=== PATIENT | female | born 1965 | race American Indian/Alaskan Native ===

== ENCOUNTER 2018-06-22 21:43 | Emergency (ER) | payer MEDICAID ==
[2018-06-22] MEDS ORDERED: DECADRON IM ONE (22:05)
[2018-06-22] MEDS ORDERED: DECADRON ONE (22:09)
--- NOTE | 2018-06-22 23:46 | Emergency Department Report ---
ED Rash HPI - HPI Chief Complaint: Skin Rash Stated Complaint: ALLERGIC REACTION/ ITCHING Time Seen by Provider: 06/22/18 22:00 Duration: 2 months Location: Head, Neck, Chest Suspected Cause: Unknown Rash Symptoms: Yes Itching, No Facial Swelling, No Tongue/Oral Swelling, No Breathing Difficulties, No Choking Sensation, No Wheezing/Dyspnea, No Peeling, No Blistering, No Fever, No Lightheaded, No Malaise, No Myalgias Severity: moderate Other History: Pt is a 52 yo female who presents to the ED with c/o a rash to the face, neck, chest, and upper back that began 2 months ago. She states she has intermittent episodes where it resolves and then returns. The patient states she has seasonal allergies and allergies to pollen. She states she has been taking claritin, hydrocortisone cream, and benadryl. The patient states it will go away for a few days and then return again. She states that she stopped taking her lipitor, omeprazole, and ranitidine on her doctors orders but continued to have flare ups of her rash. She has not seen an time study technologist or job putter up and ticket preparer. She denies any new foods, soaps, detergents, or lotions. The patient denies any difficulty breathing, wheezing, or tongue edema/angioedema. ED Review of Systems ROS: Stated complaint: ALLERGIC REACTION/ ITCHING Other details as noted in HPI Comment: All other systems reviewed and negative ED Past Medical Hx - Past Medical History Previous Medical History?: Yes Hx GERD: Yes Hx Asthma: Yes - Surgical History Past Surgical History?: No - Social History Smoking Status: Never Smoker Substance Use Type: Alcohol - Medications Home Medications: Home Medications Medication Instructions Recorded Confirmed Last Taken Type Flonase 2 puff INHALATION DAILY 03/10/18 03/10/18 03/09/18 History Gabapentin 600 mg PO HS 03/10/18 03/10/18 03/08/18 History Omeprazole/Sodium Bicarbonate 1 each PO DAILY 30 Days #30 capsule 03/10/18 Unknown Rx [Omeprazole-Bicarb 20-1,100 Cap] Symbicort 160-4.5 Mcg Inhaler 2 puff INHALATION DAILY 03/10/18 03/10/18 03/09/18 History VENTOLIN Inhaler(NF) 2 puff INHALATION QID 03/10/18 03/10/18 03/09/18 History tiZANidine 4 mg PO Q3H 03/10/18 03/10/18 03/08/18 History traMADol 1 tab PO BID 03/10/18 03/10/18 03/08/18 History Cetirizine HCl [ZyrTEC] 10 mg PO DAILY #30 capsule 06/22/18 Unknown Rx Hydroxyzine HCl [hydrOXYzine] 50 mg PO DAILY PRN #20 tablet 06/22/18 Unknown Rx Prednisone [predniSONE 10 mg 10 mg PO .TAPER #1 tab.ds.pk 06/22/18 Unknown Rx (6-Day Pack, 21 Tabs)] Rash Exam - Exam General: Vital signs noted. No distress. Alert and acting appropriately. HEENT: Yes Periorbital Edema (very mild amount of swelling around the eyes ), No Conjuctival Injection, No Chemosis, No Perioral Edema, No Tongue Edema, No Uvular Edema, No Compromised Airway, No Drooling Lungs: Yes Good Air Exchange, No Wheezes, No Ronchi, No Stridor, No Cough, No Labored Respirations, No Retractions, No Use of Accessory Muscles, No Other Abnormal Lung Sounds Heart: Yes Regular, No Murmur Skin: Yes Urticarial Rash (rash present to the face, neck, chest, and upper back), Yes Erythema, No Weeping, No Tenderness, No Edema, No Encrustations ED Course Vital Signs 06/22/18 21:48 Temperature 98.3 F Pulse Rate 89 Respiratory 18 Rate Blood Pressure 158/84 [Right] O2 Sat by Pulse 98 Oximetry ED Medical Decision Making - Medical Decision Making Pt is a 52 yo female who presents to the ED with c/o urticaria that began 2 months ago. She has been having intermittent episodes. Pt has a hx of seasonal allergies. Has been taking claritin, benadryl, and using hydrocortisone cream. No respiratory involvement. VSS. Will give pt hydroxyzine, medrol dose pack, and zrytec. Advised pt to follow up with her PCP in the next 2 days. Referred pt to dermatology due to frequent rashes. return to the ED for any new or worsening symptoms. - Differential Diagnosis Allergic reaction, contact dermatitis, urticaria, irritant dermatitis Critical care attestation.: If time is entered above; I have spent that time in minutes in the direct care o f this critically ill patient, excluding procedure time. ED Disposition Clinical Impression: Urticaria Allergic reaction Qualifiers: Encounter type: initial encounter Qualified Code(s): T78.40XA - Allergy, unspecified, initial encounter Disposition: TO HOME OR SELFCARE Is pt being admited?: No Does the pt Need Aspirin: No Condition: Stable Instructions: Allergies (ED) Additional Instructions: Follow up with your primary care doctor in the next 2-3 days. Follow up with dermatology in the next 2-3 days. Return to the emergency room for any new or worsening symptoms. Take medications as prescribed. Prescriptions: Hydroxyzine HCl [hydrOXYzine] 50 mg PO DAILY PRN #20 tablet PRN Reason: Itching Prednisone [predniSONE 10 mg (6-Day Pack, 21 Tabs)] 10 mg PO .TAPER #1 tab.ds.pk Cetirizine HCl [ZyrTEC] 10 mg PO DAILY #30 capsule Referrals: WILDA AVILEZ MD [Primary Care Provider] - 2-3 Days DULCE NUNEZ MD [Staff Physician] - 2-3 Days Time of Disposition: 23:46 Print Language: IRISH
[2018-06-23 01:09] VITALS: BP 127/71
== END 2018-06-22 23:55 | disposition home or self-care (01) ==
LOC: ED 21:43
DX: T78.40XA Allergy, unspecified, initial encounter (principal); L50.9 Urticaria, unspecified; Y92.89 Other specified places as the place of occurrence of the external cause; K21.9 Gastro-esophageal reflux disease without esophagitis; J45.909 Unspecified asthma, uncomplicated
CPT/HCPCS: 96372; 99282; J1100